=== PATIENT | male | born 1955 | race Caucasian/White ===

== ENCOUNTER → 2025-07-24 08:12 | Outpatient (REF) | payer OTHER, SELFPAY | LOC: HWRAD 08:12 | PROVIDERS: ATTENDING PHYSICIAN Chiropractor | DX: M99.02 Segmental and somatic dysfunction of thoracic region (principal); M99.03 Segmental and somatic dysfunction of lumbar region; M62.40 Contracture of muscle, unspecified site; M53.2X7 Spinal instabilities, lumbosacral region | CPT/HCPCS: 72070; 72110 ==